=== PATIENT | female | born 1995 | race Caucasian/White ===

== ENCOUNTER 2017-09-27 10:43 | Emergency (ER) | payer BC, OTHER ==
[2017-09-27 10:48] VITALS: TEMP 98.1
--- NOTE | 2017-09-27 11:18 | EDPHY ---
H & P Time Seen by Provider: 09/27/17 10:55 HPI/ROS: CHIEF COMPLAINT: Cough, myalgias HISTORY OF PRESENT ILLNESS: 22-year-old male presents to the emergency department by private vehicle with cough and myalgias over last 2 days. Patient has a known history of asthma. She has been using her albuterol inhaler as needed. She is not smoke cigarettes. No recent travel. 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 She got flu shot in the fall. She denies pain in her chest or difficulty breathing. She has had cough, rhinorrhea, nasal congestion as well as headache. She has had intermittent fevers and chills although does not own a thermometer. No rash. No headache. REVIEW OF SYSTEMS: Constitutional: Subjective fevers, chills Eyes: No double or blurry vision. ENT: No sore throat. Respiratory: Cough. No shortness of breath Cardiac: No chest pain. Gastrointestinal: No abdominal pain, vomiting or diarrhea. Genitourinary: No dysuria. Musculoskeletal: No neck or back pain. Skin: No rashes. Neurological: headache. 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 36.7 temperature. Eyes: Pupils equal and round. Extraocular motions are all intact. ENT: Mouth: Mucous membranes moist. Respiratory: No wheezing, rhonchi, or rales, lungs are clear to auscultation. No respiratory stress. Cardiovascular: Regular rate and rhythm. Gastrointestinal: Abdomen is soft and nontender, no masses, no rebound or guarding, bowel sounds normal. Neurological: Alert and oriented x 3, cranial nerves II through XII grossly intact Skin: Warm and dry, no rashes. Musculoskeletal: Nontender to palpate along the cervical, thoracic or lumbar spine. Neck is supple. Extremities: Full range of motion and no peripheral edema. Psychiatric: Patient is oriented X 3, there is no agitation. Constitutional: Initial Vital Signs Temperature (C) 36.7 C 09/27/17 10:47 Heart Rate 86 09/27/17 10:47 Respiratory Rate 18 09/27/17 10:47 Blood Pressure 116/81 H 09/27/17 10:47 O2 Sat (%) 96 09/27/17 10:47 O2 Delivery Mode Room Air Allergies/Adverse Reactions: No Known Allergies Allergy (Verified 09/27/17 10:46) Home Medications: Medication Instructions Recorded NK [No Known Home Meds] 09/27/17 Medical Decision Making ED Course/Re-evaluation: 22-year-old female presents to the emergency department with cough, myalgias, and reported fever. Influenza was negative. I do not think chest x-rays indicated. Do not think antibiotics are indicated. The patient was reassured. She likely has viral illness. I encouraged symptomatic or supportive care and she should return if she develops fever, difficulty breathing or any other concerns. Differential Diagnosis: Including but not limited to influenza, bronchitis, pneumonia, viral upper respiratory infection - Data Points Laboratory Results: 09/27/17 10:50 Nasal Influenza A PCR NEGATIVE FOR FLU A (NEGATIVE) Nasal Influenza B PCR NEGATIVE FOR FLU B (NEGATIVE) Departure - Departure Disposition: Home, Routine, Self-Care Clinical Impression: Upper respiratory infection Qualifiers: URI type: unspecified URI Qualified Code(s): J06.9 - Acute upper respiratory infection, unspecified Condition: Good Instructions: Upper Respiratory Infection (ED) Additional Instructions: Albuterol 2 puffs every 4 hr for 1 week and then as needed. Adult Pain & Fever Control: We recommend Acetaminophen (Tylenol) and Ibuprofen (Motrin,Advil) for pain and fever control. When fever is high or pain severe, both drugs can be used at the same time, but at different intervals. Please note the time differences. Your dose is: Acetaminophen 1000mg every 4 to 6 hours Ibuprofen 600mg every 8 hours with food Note: do not take Acetaminophen with Hydrocodone (Vicodin, Lortab) or Oycodone (Percocet). These medications also contain Acetaminophen. No more than 3000mg of Acetaminophen should be taken in 24 hours (for an adult). Referrals: Jacob Claros MD [Medical Doctor] - 2-3 days without fail (Primary care provider payroll professional)
[2017-09-27 12:38] VITALS: BP 119/74; PULSE 83; RESP 16; O2SAT 94
== END 2017-09-27 12:22 | disposition home or self-care (01) ==
DX: J06.9 Acute upper respiratory infection, unspecified (principal); J45.909 Unspecified asthma, uncomplicated